=== PATIENT | male | born 1965 | race Caucasian/White ===

== ENCOUNTER 2016-05-16 09:09 | Emergency (ER) | payer BC ==
[2016-05-16 09:57] LABS: BASOPHILS 0.7 %; BASOPHILS ABSOLUTE 0.04 10/3/uL (0.0-0.16); EOSINOPHILS 2.1 %; EOSINOPHILS ABSOLUTE 0.12 10/3/uL (0.0-0.53); HEMOGLOBIN 16.2 g/dL (13.6-17.8); IMMATURE GRANULOCYTES 0.2 %; IMMATURE GRANULOCYTES ABSOLUTE 0.01 10/3/uL (0.0-0.11); LYMPHOCYTES ABSOLUTE 1.25 10/3/uL (0.67-4.30); MEAN CORPUS HGB CONC 33.8 g/dL (32.0-36.0); MEAN CORPUSCULAR HEMOGLOB 30.3 pg (26.0-34.0); MEAN CORPUSCULAR VOLUME 89.5 fL (80-100); MEAN PLATELET VOLUME 10.3 fL (9.2-13.0); MONOCYTES 7.9 %; MONOCYTES ABSOLUTE 0.45 10/3/uL (0.21-1.20); NEUTROPHILS 67.1 %; NEUTROPHILS ABSOLUTE 3.82 10/3/uL (2.02-8.40); PLATELET COUNT 142 10/3/uL (150-400); RBC DISTRIBUTION WIDTH 12.1 % (12.0-16.0); RED CELL COUNT 5.35 10/6/uL (4.7-6.1)
[2016-05-16 09:59] LABS: HEMATOCRIT 47.9 % (40.0-51.0); MANUAL DIFF NO %; WHITE BLOOD CELLS 5.7 10/3/uL (4.5-10.5)
[2016-05-16 10:06] LABS: INTERNATIONAL NORMAL RATI 1.1 UNITS (-); PARTIAL THROMBO TIME 30.8 SEC (22.5-37.2); PROTIME (NOT ORD) 13.7 SEC (12.0-14.5)
[2016-05-16 10:17] LABS: BUN (BLOOD UREA NITROGEN) 13 MG/DL (6-23); CHEST PAIN PROFILE TAT 0 Hrs 24 Mins; CHLORIDE, SERUM 107 MMOL/L (96-112); CO2 (CARBON DIOXIDE) 28 MMOL/L (24-34); CREATININE 1.21 MG/DL (0.70-1.30); GFR AFRICAN AMERICAN 80 ML/MIN (>=60); GFR NON AFRICAN AMERICAN 69 ML/MIN (>=60); GLUCOSE, SERUM 100 MG/DL (60-99); SODIUM, SERUM 141 MMOL/L (135-148); TROPONIN I <0.02 NG/ML (<0.05)
== END 2016-05-16 10:54 | disposition home or self-care (01) ==
LOC: ER 09:09
PROVIDERS: Emergency Medicine
DX: R07.89 Other chest pain (principal); M54.9 Dorsalgia, unspecified; I10 Essential (primary) hypertension; K21.9 Gastro-esophageal reflux disease without esophagitis
CPT/HCPCS: 71020; 80048; 83735; 84484; 85025; 85610; 85730; 93005; 99285